=== PATIENT | female | born 1995 | race Caucasian/White ===

== ENCOUNTER 2021-04-03 15:07 | Outpatient (REF) | payer OTHER, SELFPAY | END 2021-04-03 15:08 | disposition home or self-care (01) | LOC: HO.LAB 15:07 | PROVIDERS: Visit Provider Advanced Practice Midwife | DX: Z30.011 Encounter for initial prescription of contraceptive pills (principal) | CPT/HCPCS: 88142 ==

== ENCOUNTER → 2021-12-15 08:44 | Outpatient (BNVA) | payer OTHER, SELFPAY | PROVIDERS: Visit Provider Advanced Practice Midwife | DX: N92.6 Irregular menstruation, unspecified (principal); Z32.01 Encounter for pregnancy test, result positive | CPT/HCPCS: 81025 ==

== ENCOUNTER 2021-12-29 11:22 | Outpatient (REF) | payer OTHER, SELFPAY ==
--- NOTE | ~2021-12-29 | US_ITS ---
EXAMINATION: US OBSTETRICAL ULTRASOUND CLINICAL INFORMATION: Irregular menses. Size and dates. COMPARISON: None. LMP: 11/06/2021. Gestational age by maternal dates is 7 weeks 4 days. Estimated date of delivery by maternal dates is 08/13/2022. TECHNIQUE: Transabdominal and endovaginal OB ultrasound. FINDINGS: There is a single intrauterine gestational sac with visible yolk sac, embryo/fetus, and cardiac activity. There is no significant subchorionic hemorrhage or hematoma. HR: 147 beats per minute. CRL (crown rump length): 1.01 cm (7 weeks 1 day +/- 4 days). DEBBIE (estimated date of delivery): 08/16/2022 +/- 4 days. MATERNAL ADNEXA: The right maternal ovary measures 2.7 x 1.9 x 3.0 cm. Circumscribed hypoechoic region with some distal sound enhancement representing a corpus luteal cyst is present measuring 1.4 x 1.5 x 1.4 cm in size. The left maternal ovary measures 2.5 x 1.3 x 1.6 cm. No abnormal left adnexal findings. There is no significant maternal adnexal mass. No maternal pelvic ascites. US/US OB pelvic and transvaginal IMPRESSION: 1. Single intrauterine gestation with ultrasound gestational age of 7 weeks 1 day +/- 4 days. 2. Estimated date of delivery is 08/16/2022 +/- 4 days. 3. No suspicious maternal adnexal mass or pelvic ascites.
== END 2021-12-29 11:23 | disposition home or self-care (01) ==
LOC: HO.HMGCX 11:22
PROVIDERS: Visit Provider Advanced Practice Midwife
DX: O26.841 Uterine size-date discrepancy, first trimester (principal)
CPT/HCPCS: 76801; 76817

== ENCOUNTER 2022-01-21 11:13 | Outpatient (REF) | payer OTHER, SELFPAY ==
[2022-01-21 12:43] LABS: Amphetamine Screen Urine Not Detected (Not Detect); Barbiturates, Urine Not Detected (Not Detect); Benzodiazepines Screen Urine Not Detected (Not Detect); Cannabinoid Screen Urine Not Detected (Not Detect); Cocaine Screen Urine Not Detected (Not Detect); Fentanyl, urine Not Detected (Not Detect); Opiate Screen Urine Not Detected (Not Detect); Phencyclidine Screen Urine Not Detected (Not Detect)
[2022-01-21 13:28] LABS: Hematocrit 37.2 % (37.0-47.0); Mean Corpuscular HGB Conc 34.9 g/dl (31.0-35.0); Mean Corpuscular Hemoglobin 33.1 pg (27.0-33.0); Mean Corpuscular Volume 94.7 fL (80.0-98.0); Mean Platelet Volume 9.1 fL (9.4-12.3); Platelet Count 391 X10*3/uL (160-400); Red Blood Count 3.93 X10*6/uL (4.20-5.50); Red Cell Distribution Width 11.9 % (11.0-16.0); White Blood Count 9.6 X10*3/uL (4.8-10.8)
[2022-01-21 13:52] LABS: Glucose 1 Hour PP 50gm Dose 101 mg/dL (60-140)
[2022-01-22 07:21] LABS: HIV AB/AG Nonreactive (Nonreactive); Hepatitis B Surface Antigen Negative (Negative); Syphilis Screen Nonreactive (Nonreactive); ~HepC Num1 0.16 S/CO (0.00-0.79); ~Hepatitis C Antibody Nonreactive (Nonreactive)
[2022-01-29 14:12] LABS: CF Ethnicity NG; Cystic Fibrosis NEGATIVE (NEGATIVE)
== END 2022-01-21 11:14 | disposition home or self-care (01) ==
LOC: HO.LAB 11:13
PROVIDERS: Visit Provider Advanced Practice Midwife
DX: O26.891 Other specified pregnancy related conditions, first trimester (principal); O99.341 Other mental disorders complicating pregnancy, first trimester; K58.9 Irritable bowel syndrome, unspecified; Z3A.10 10 weeks gestation of pregnancy; Z79.899 Other long term (current) drug therapy
CPT/HCPCS: 80307; 81220; 82950; 85027; 86762; 86780; 86787; 86803; 86850; 86900; 87086; 87340; 87389; 99212

== ENCOUNTER 2022-02-03 13:37 | Outpatient (REF) | payer OTHER, SELFPAY ==
[2022-02-04 03:35] LABS: CT PCR NOT DETECTED (Not Detect.); NG PCR NOT DETECTED (Not Detect.)
[2022-02-04 10:16] LABS: BV Int Neg Control Negative (Negative); BV Int Pos Control Positive (Positive)
== END 2022-02-03 13:38 | disposition home or self-care (01) ==
LOC: HO.LNP 13:37
PROVIDERS: Visit Provider Advanced Practice Midwife
DX: Z34.91 Encounter for supervision of normal pregnancy, unspecified, first trimester (principal)
CPT/HCPCS: 81003; 87480; 87491; 87510; 87591; 87660; 99212

== ENCOUNTER 2022-03-03 12:18 | Outpatient (REF) | payer OTHER, SELFPAY ==
[2022-03-12 17:03] LABS: CF Ethnicity NH; Cystic Fibrosis NEGATIVE (NEGATIVE)
== END 2022-03-03 12:19 | disposition home or self-care (01) ==
LOC: HO.LAB 12:18
PROVIDERS: Advanced Practice Midwife; Visit Provider Obstetrics & Gynecology
DX: Z34.92 Encounter for supervision of normal pregnancy, unspecified, second trimester (principal); Z3A.16 16 weeks gestation of pregnancy
CPT/HCPCS: 36415; 81220; 81511; 82105; 99212

== ENCOUNTER → 2022-03-29 14:16 | Outpatient (BNVA) | payer BC, SELFPAY | PROVIDERS: Visit Provider Advanced Practice Midwife | DX: O35.9XX0 Maternal care for (suspected) fetal abnormality and damage, unspecified, not applicable or unspecified (principal); Z3A.20 20 weeks gestation of pregnancy | CPT/HCPCS: 81003; 99212 ==